=== PATIENT | male | born 1980 | race Caucasian/White ===

== ENCOUNTER 2016-05-07 01:50 | Observation (INO) | payer MEDICAID ==
[2016-05-07] MEDS ORDERED: ALU/MAG/SIM 30 ML UDC ONE (02:16)
[2016-05-07] MEDS ORDERED: LABETALOL 100 MG/20 ML VIAL ONE (02:16)
[2016-05-07] MEDS ORDERED: LIDOCAINE 2% VISC 15 ML UDC ONE (02:16)
[2016-05-07] MEDS ORDERED: NITROGLYCERIN 2% OINT 1 INCH PKT TOPICAL ONE (02:16)
[2016-05-07] MEDS ORDERED: ACETAMINOPHEN 325 MG TAB ONE (03:20)
[2016-05-07] MEDS ORDERED: MORPHINE 2 MG/ML SYR ONE (03:20)
[2016-05-07] MEDS ORDERED: NITROGLYCERIN SL 0.4 MG TAB SL PRN (03:55)
[2016-05-07] MEDS ORDERED: DOCUSATE SOD 100 MG CAP PO PRN (03:55)
[2016-05-07] MEDS ORDERED: amLODIPine 5 MG TAB PO ONE (03:55)
[2016-05-07] MEDS ORDERED: MORPHINE 2 MG/ML SYR IV PRN (03:55)
[2016-05-07] MEDS ORDERED: NITROGLYCERIN 50 MG/250 ML IV PRN (03:55)
[2016-05-07] MEDS ORDERED: SALINE FLUSH 10 ML FLUSH PRN (03:55)
[2016-05-07] MEDS ORDERED: ACETAMINOPHEN 325 MG TAB PO PRN (03:55)
[2016-05-07] MEDS ORDERED: TRAMADOL 50 MG TAB PO PRN (03:55)
[2016-05-07] MEDS ORDERED: SODIUM CHLORIDE 0.9% FLUSH BAG 500 ML IV PRN (03:55)
[2016-05-07] MEDS ORDERED: ONDANSETRON 4 MG VIAL IV PRN (03:55)
[2016-05-07] MEDS ORDERED: SODIUM CHLORIDE 0.9% 1,000 ML IV SCH (03:55)
[2016-05-07] MEDS ORDERED: TEMAZEPAM 15 MG CAP PO PRN (03:55)
[2016-05-07] MEDS ORDERED: LORAZEPAM 0.5 MG TAB PO PRN (03:55)
[2016-05-07 05:04] VITALS: BP_SYST 169; RESP 16; TEMP 97.4
[2016-05-07 07:31] VITALS: BP_SYST 137; RESP 18; TEMP 98
[2016-05-07] MEDS ORDERED: ASPIRIN EC 81 MG TAB PO SCH (08:00)
[2016-05-07] MEDS ORDERED: SALINE FLUSH 10 ML FLUSH SCH (08:00)
[2016-05-07] MEDS ORDERED: KCL CR 20 MEQ TAB PO ONE (08:45)
[2016-05-07] MEDS ORDERED: oxyCODONE/APAP 10/325 TABLET PO PRN (08:45)
[2016-05-07] MEDS ORDERED: amLODIPine 5 MG TAB PO SCH (08:45)
[2016-05-07] MEDS ORDERED: HCTZ 12.5 MG CAP PO SCH (09:00)
[2016-05-07 09:51] VITALS: BP_SYST 137; RESP 18; TEMP 98
[2016-05-07 10:21] VITALS: RESP 22
== END 2016-05-07 09:36 | disposition home or self-care (01) ==
LOC: ENRESERVDT → ENRESERVTM → ER 01:50 → INTOOBSV 03:42 → EMR 03:42 → PCU 04:50
PROVIDERS: ADMIT Specialist; ATTEND Specialist
DX: I10 Essential (primary) hypertension (principal); R07.9 Chest pain, unspecified; E87.6 Hypokalemia; F32.9 Major depressive disorder, single episode, unspecified; F41.9 Anxiety disorder, unspecified; F17.210 Nicotine dependence, cigarettes, uncomplicated
CPT/HCPCS: 36415; 71010; 80053; 82550; 82553; 83690; 83735; 84484; 85025; 85610; 85730; 93005; 94799; 96374; 96375

== ENCOUNTER 2016-05-15 00:27 | Emergency (ER) | payer MEDICAID ==
[2016-05-15] MEDS ORDERED: OPTIRAY 350 100 ML VIAL HMH IV ONE (00:28)
[2016-05-15] MEDS ORDERED: SODIUM CHLORIDE 0.9% 1,000 ML ONE (02:22)
[2016-05-15] MEDS ORDERED: CEFTRIAXONE 1 GM VIAL ONE (02:22)
[2016-05-15] MEDS ORDERED: SODIUM CHLORIDE 0.9% 100 ML IV ONE (02:22)
== END 2016-05-15 03:07 | disposition home or self-care (01) ==
LOC: ER 00:27
DX: N10 Acute pyelonephritis (principal); N39.0 Urinary tract infection, site not specified
CPT/HCPCS: 36415; 74177; 80053; 81003; 83690; 85025; 87088; 96361; 96365; 96375